=== PATIENT | female | born 1975 | race Caucasian/White ===

== ENCOUNTER → 2017-07-07 | Day surgery (SDC) | payer OTHER ==
[~2017-07-07] MED LIST: PROTONIX20 M1 PO; TRAMADOL HCL50 M1 PO
--- NOTE | 2017-07-07 14:10 | Operative Report ---
Operative/Inv Procedure Report Surgery Date: 07/07/17 Name of Procedure: cystocele repair with mesh and rectocele repair with mesh, cystoscopy Pre-Operative Diagnosis: cystocele and rectocele grade 2-3 Post-Operative Diagnosis: same Estimated Blood Loss: 50ml to 100ml Surgeon/Barrel Finisher: Gretel Lira MD Anesthesia: laryngeal mask airway Implants: vaginal mesh x2 Drains: none Complications: none Condition: stable Operative Indication: pelvic floor discomfort and vaginal bulge Operative/Procedure Note Note: An operative dictation on patient Debbi Bazan. 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 Also has a history of pelvic organ prolapse that required tampon usage to relieve the discomfort. She felt to vaginal bulge as well as a heaviness with long-term standing and activity. Lying down relieve that. She also used to pessary for a period of time and found comfort and improvement in her vaginal issues. She was to undergo a cystocele repair with mesh as well as a rectocele repair with mesh. A discussion regarding permanent mesh and biologic mesh was engaged in and all questions were answered. She wished to proceed with the surgery. She was identified in the holding area and brought to the operating placed on the operating table in the supine position. Timeout was performed. IV antibiotics were infused. LMA anesthesia was started. She was placed in the dorsolithotomy position and her genitalia was shaved. She was prepped and draped in the standard sterile fashion. Dai catheter was placed in the bladder was emptied. This was placed on the patient's abdomen. [place] retractor was placed with 6 stay hooks. 1% lidocaine with epinephrine was infiltrated into the anterior vaginal wall. Incision was made from the bladder neck to the cervix. Vaginal flaps are created taking care not to injure the bladder. The retropubic space was entered bluntly and sharply from the bladder neck down to the supraspinous process on the patient's right and left side. Prolene sutures was placed into the sacrospinous ligament on the patient's left and right side using the thin Capio device. 2 Prolene sutures were placed the patient's bladder neck on the patient's right and left side. These were then used to place the Restoril anterior mesh. The distal portion was secured to the bladder neck with a 2-0 Vicryl and the proximal portion was secured with 2-0 Vicryl at the near the cervix. The 4 Prolene sutures were then placed through the mesh and tied down. The mesh was seen to be in good position. The mesh was trimmed prior to placing it. It was copious irrigated with bacitracin irrigation. A cystoscopy was performed to check for ureteral Deflux. Methylene blue had been given prior to the start of the surgery. Excellent E Deflux was seen from both ureteral orifices. The Prolene sutures were cut and the incision was closed using 2-0 Vicryl running locking suture. Attention was then turned to the rectocele portion of the case. 1% lidocaine with epinephrine was infiltrated into the posterior vaginal wall with the help of Allis clamps on the posterior fourchette. The incision was made with #15 blade. The posterior vaginal flaps are created taking care not to injure the rectum. Periodic rectal exams were performed to help with this dissection. This was done sharply with the Metzenbaum scissors. Once the rectocele was completely isolated to 0 Vicryl sutures were placed into the fascial portion of her tissue on the right and left side. This was done from the length of the vagina approximately near the cervix and distally at the posterior fourchette. A cell mesh that had been soaking since the start of the case was then trimmed and placed at the defect site at the posterior vagina. The proximal portion was secured with 2-0 Vicryl near the cervix. The distal portion was secured at the posterior fourchette. Interrupted 2-0 Vicryl sutures that had not been tied down yet were then tied down incorporating the a cell mesh. The sutures were tied sequentially proximally from down to the distal portion. 3-0 Vicryl was used to close the distal portion at the posterior fourchette. There was no rectal injury. There was not a nice straight canal when a final rectal exam was performed. The vagina was packed with 2 inch vaginal packing with bacitracin ointment. The bladder was emptied and the Dai catheter removed. The sponge and needle count were correct at the end of the case. Patient tolerated procedure well. Findings: no mesh in bladder. excellent ureteral efflux from both ureters Discharge Disposition: PACU
== END ==
LOC: STS 03:47
DX: N81.10 Cystocele, unspecified (principal); N81.6 Rectocele; R10.2 Pelvic and perineal pain; N28.9 Disorder of kidney and ureter, unspecified; I87.1 Compression of vein; Z87.891 Personal history of nicotine dependence; I10 Essential (primary) hypertension; K21.9 Gastro-esophageal reflux disease without esophagitis
CPT/HCPCS: 81025; C1781; J0690; J2250; Q9968

== ENCOUNTER → 2017-09-15 | Day surgery (SDC) | payer OTHER ==
[~2017-09-15] VITALS: Ht 170.2 cm; Wt 59.0 kg
--- NOTE | 2017-09-15 11:06 | Operative Report ---
Operative/Inv Procedure Report Surgery Date: 09/15/17 Name of Procedure: mesh extrusion repair with Acell Pre-Operative Diagnosis: vaginal mesh extrustion with vaginal pain Post-Operative Diagnosis: same Estimated Blood Loss: less than 50ml Surgeon/Weapons Officer: Gretel Lira MD Anesthesia: local monitored anesthesi Implants: acell mesh Complications: none Condition: stable Operative Indication: vaginal pain with vaginal mesh extrusion Operative/Procedure Note Note: This is a 41-year-old female with very complicated medical history with connective tissue issues. This has resulted in multiple medical problems including ahas resulted in multiple medical problems including a left kidney that required nephropexy left kidney that required nephropexy, rectal prolapse, rectocele, cystocele and vaginal discomfort from connective-tissue disorder. She had very poor healing of her vaginal tissue after her prolapse repair and ultimately resulted inShe had very poor healing of her vaginal tissue after her prolapse repair and ultimately resulted in a tiny area of mesh extrusion a tiny area of mesh extrusion that was giving her vaginal pain. It was 2 mm in size at the anterior vaginal wall. That is giving her vaginal pain. It was 2 mm in size at the anterior vaginal wall. She has a history of having received Halima Carey laser therapy for vaginal atrophy as well as using Estrace creamShe has a history of having received Halima Carey laser therapy for vaginal atrophy as well as using Estrace cream pre-and postop. However she has very poor tissue quality and as a result And as a result the mesh extruded at the incision line. She was given the risk, benefits, and alternatives of the surgery. She understands that she has poor tissue quality. All questions were answered. she has poor tissue quality. All questions were answered. Patient was taken to the operating placed on the operating table in the supine position. Timeout was performed. SCDs were placed. IV antibiotics were infused. IV sedation was started and the patient was placed in the dorsolithotomy position. She was shavedwas shaved in the genitalia with the clippers. She was prepped and draped in standard sterile fashion. Dai catheter was placed and the bladder was drained. The Fitzwilliam retractor was placed with 6 stay hooks. Anterior vaginal wall was infiltrated with 1% lidocaine with epinephrine. An incision was made and the vaginal flaps are created taking care not to cut the mesh with the bladder behind it. Once the vaginal flaps were created, the Acell mesh that had been soaking in the bacitracin irrigation was then was then sutured into place with 3-0 Vicryl sutures proximally, distally and laterally. The vaginal epithelium was then closed over it with interrupted 2-0 Vicryl sutures. The vaginal epithelium was then closed over it with interrupted 2-0 Vicryl sutures. She had very minimal bleeding during the surgery. She had very poor quality tissue. She had very minimal bleeding during the surgery. She had very poor quality tissue. Cystoscopy was performed and the bladder was normal Cystoscopy was performed and the bladder was normal with good efflux from both ureteral orifices. There was no injury to the bladder or the urethra. There is no foreign body in the urethra or the bladder. Bladder was emptied. The vagina was packed with 2 inch vaginal packing impregnated with bacitracin ointment. Sponge and needle count were correct at the end of the case. Patient tolerated the procedure was transferred to the recovery room stable condition. Findings: Poor tissue quality with minimal bleeding from the vaginal epithelium edges. Normal bladder andNormal bladder and ureteral orifices. No mesh in the bladder or the urethra.
== END ==
LOC: STS 01:36
DX: T83.721A Exposure of implanted vaginal mesh into vagina, initial encounter (principal); R10.2 Pelvic and perineal pain; N81.10 Cystocele, unspecified; M79.9 Soft tissue disorder, unspecified; N28.89 Other specified disorders of kidney and ureter
CPT/HCPCS: 81025; C1781; J0131; J0690; J2250